=== PATIENT | female | born 1950 | race Caucasian/White ===

== ENCOUNTER → 2019-02-27 | Outpatient (CLI) | payer BC ==
[~2019-02-27] MED LIST: ADVAIR 250-501 EACH INH; ADVAIR HFA 230M12 GM INH; ASPIRIN EC325 M1 PO; ASPIRIN325 PO; B-COMPLEX-VITA1 EACH PO; CARDIZEM CD120 MG PO; CARDIZEM CD360 MG PO; FLEXERIL PO; FLUZONE 2045 MCG/011; IBUPROFEN 200200 M1 PO; IBUPROFEN 800800 M1 PO; LIPITOR 20 MG T20 M1 PO; LIPITOR10 MG PO; LITE COAT ASPI325 MG PO; MEDROLDOSEPACK PO; MULTIVITAMINS PO; OMEPRAZOLE; OMEPRAZOLE40 MG PO; OXYCODONE HCL15 MG PO; PERCOCET 5-3251 EACH PO; PNEUMOVAX25 MCG/0.5; PREDNISONE 20 M20 M1 PO; PRILOSEC 20 MG20 MG PO; PROPAFENONE 22225 MG PO; PROTONIX 20 MG20 M1 PO; REQUIP0.5 MG PO; ROBAXIN 750 MG750 M1 PO; SIMVASTATIN40 MG PO; VENTOLIN HFA 1818 GM INH; VIT B COMPLEX; VITAMIN D1000 UNI1 PO; ZPAK PO; [UNRECOGNIZED DRUG - OTHER] PO; [UNRECOGNIZED DRUG - OTHER] PO
[2019-02-27 11:04] LABS: ABSOLUTE BASOPHILS 0.1 thou/uL (0.0-0.2); ABSOLUTE EOSINOPHILS 0.2 thou/uL (0.0-0.7); ABSOLUTE LYMPHOCYTES 2.1 thou/uL (0.8-5.3); ABSOLUTE MONOCYTES 0.6 thou/uL (0.0-1.2); ABSOLUTE NEUTROPHILS 6.3 thou/uL (1.6-8.1); BASOPHILS 1.2 %; EOSINOPHILS 1.8 %; HEMATOCRIT 41.8 % (37.0-47.0); HEMOGLOBIN 14.2 gm/dL (12.0-15.0); LYMPHOCYTES 22.9 %; MCH 29.8 pg (26.0-34.0); MCHC 33.9 g/dL (28.0-37.0); MCV 87.9 fL (80.0-100.0); MONOCYTES 6.2 %; MPV 7.5 fl. (7.2-11.1); NUCLEATED RBCS 0 /100WBC; PLATELET COUNT* 325 thou/uL (150-400); POLYS 67.9 %; RBC 4.76 mil/uL (4.20-5.00); RDW-CV 15.2 % (10.5-14.5); WBC 9.3 thou/uL (4.0-11.0)
[2019-02-27 11:18] LABS: CALCIUM 9.6 mg/dL (8.5-10.1); CREATININE 0.8 mg/dL (0.6-1.3); POTASSIUM 3.7 mmol/L (3.5-5.1)
[2019-02-27 11:23] LABS: ALBUMIN 4.4 g/dL (3.4-5.0); TOTAL BILIRUBIN 0.5 mg/dL (<0.1-1.0)
== END ==
LOC: M.LAB 10:50
PROVIDERS: Family Medicine
DX: R10.13 Epigastric pain (principal); R11.14 Bilious vomiting

== ENCOUNTER 2019-09-05 16:41 | Emergency (ER) | payer BC ==
[~2019-09-05] VITALS: Ht 162.6 cm; Wt 77.1 kg
[2019-09-05 19:09] LABS: ABSOLUTE BASOPHILS 0.1 thou/uL (0.0-0.2); ABSOLUTE EOSINOPHILS 0.4 thou/uL (0.0-0.7); ABSOLUTE LYMPHOCYTES 2.7 thou/uL (0.8-5.3); ABSOLUTE MONOCYTES 0.6 thou/uL (0.0-1.2); ABSOLUTE NEUTROPHILS 3.5 thou/uL (1.6-8.1); BASOPHILS 0.9 %; EOSINOPHILS 5.3 %; HEMATOCRIT 39.1 % (37.0-47.0); HEMOGLOBIN 13.3 gm/dL (12.0-15.0); LYMPHOCYTES 36.6 %; MCH 30.5 pg (26.0-34.0); MCHC 34.1 g/dL (28.0-37.0); MCV 89.4 fL (80.0-100.0); MONOCYTES 8.5 %; MPV 7.5 fl. (7.2-11.1); NUCLEATED RBCS 0 /100WBC; PLATELET COUNT* 269 thou/uL (150-400); POLYS 48.7 %; RBC 4.37 mil/uL (4.20-5.00); RDW-CV 14.5 % (10.5-14.5); WBC 7.3 thou/uL (4.0-11.0)
[2019-09-05 19:21] LABS: CALCIUM 8.9 mg/dL (8.5-10.1); CREATININE 1.1 mg/dL (0.6-1.3); POTASSIUM 3.9 mmol/L (3.5-5.1)
[2019-09-05 19:23] LABS: APTT 25.7 Seconds (25.0-31.3); PROTIME 10.4 Seconds (9.20-11.50)
[2019-09-05 19:30] LABS: ALBUMIN 4.5 g/dL (3.4-5.0); TOTAL BILIRUBIN 0.3 mg/dL (<0.1-1.0); TOTAL PROTEIN 7.9 g/dL (6.4-8.2)
[2019-09-05 19:38] LABS: URINE BILIRUBIN NEGATIVE (Negative); URINE BLOOD NEGATIVE (Negative); URINE CLARITY CLEAR; URINE COLOR YELLOW; URINE GLUCOSE-RANDOM NEGATIVE (Negative); URINE KETONES NEGATIVE (Negative); URINE LEUKOCYTES-REFLEX NEGATIVE (Negative); URINE NITRITE-REFLEX NEGATIVE (Negative); URINE PROTEIN NEGATIVE (Negative); URINE SPECIFIC GRAVITY 1.025 (1.005-1.030); URINE UROBILINOGEN 0.2 E.U./dl (0.2-1.0)
[2019-09-05 20:12] VITALS: BP 160/70
--- NOTE | 2019-09-06 12:42 | EKG ---
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: [place] : [id number] Requested By: Roddy Rivera Order Number: [id number] MD: Satnam Seymour Measurements Intervals [place] Rate: 80 P: 42 MD: 187 QRS: -17 QRSD: 92 T: 38 QT: 403 QTc: 465 Interpretive Statements Sinus rhythm Borderline left axis deviation Abnormal R-wave progression, early transition Compared to ECG 04/08/2011 16:39:29 No significant changes Electronically Signed On 09-06-2019 12:42:29 CDT by Satnam Seymour [email or web address] <ELECTRONICALLY SIGNED> By: Satnam Seymour MD, FACC 09/06/19 1242 19 Satnam Seymour MD, [facility] /EPI
== END 2019-09-05 20:12 | disposition home or self-care (01) ==
LOC: M.ERS 16:41
PROVIDERS: Family Medicine
DX: R60.0 Localized edema (principal); G89.29 Other chronic pain; M54.5 Low back pain; I48.91 Unspecified atrial fibrillation; F17.210 Nicotine dependence, cigarettes, uncomplicated; Z90.710 Acquired absence of both cervix and uterus; Z85.42 Personal history of malignant neoplasm of other parts of uterus; Z85.118 Personal history of other malignant neoplasm of bronchus and lung

== ENCOUNTER → 2019-09-20 | Outpatient (CLI) | payer BC | LOC: M.ULTRA 13:00 | PROVIDERS: ATTEND Family Medicine | DX: Z12.31 Encounter for screening mammogram for malignant neoplasm of breast (principal); I73.9 Peripheral vascular disease, unspecified; M79.604 Pain in right leg; M79.605 Pain in left leg ==